=== PATIENT | female | born 1990 | race Caucasian/White ===

== ENCOUNTER 2018-10-13 16:43 | Observation (INO) | payer MEDICAID ==
[~2018-10-13] VITALS: Ht 167.6 cm; Wt 123.8 kg
[2018-10-13] MEDS ORDERED: PNV1TABL50 MT (17:33)
== END 2018-10-13 18:30 | disposition home or self-care (01) ==
LOC: 8 EST LDRP 16:43
PROVIDERS: ADMIT Specialist; ATTEND Specialist
DX: O26.893 Other specified pregnancy related conditions, third trimester (principal); R10.30 Lower abdominal pain, unspecified; Z3A.39 39 weeks gestation of pregnancy
CPT/HCPCS: G0378 ×2

== ENCOUNTER 2018-10-14 02:53 | Inpatient (IN) | payer MEDICAID ==
[~2018-10-14] VITALS: Ht 167.6 cm; Wt 123.8 kg
[~2018-10-14 02:53] MED LIST: PNV1TABL50 MT
[2018-10-14] MEDS ORDERED: LIDOCAINE HCL 1% 20ML VIAL (Pyxis) INJ INFIL SCH (03:30)
[2018-10-14] MEDS ORDERED: CARBOPROST TROMETHAMINE 250 MCG/ML AMPUL IM PRN (03:30)
[2018-10-14] MEDS ORDERED: METHYLERGONOVINE MALEATE 0.2 MG/ML IM PRN (03:30)
[2018-10-14] MEDS ORDERED: NALOXONE HCL 0.4 MG/ML 1ML VIAL IM PRN (03:30)
[2018-10-14] MEDS ORDERED: MISOPROSTOL 100MCG TABLET VG ONE (03:30)
[2018-10-14] MEDS ORDERED: BUTORPHANOL TARTRATE 2 MG/ML VIAL IV PRN (03:30)
[2018-10-14 04:09] LABS: BASOPHILS % 0.7 % (0.0-2.0); EOSINOPHILS % 0.1 % (0.0-5.0); HEMATOCRIT. 38.1 % (36.0-48.0); HEMOGLOBIN. 12.6 g/dL (12.0-16.0); LYMPHOCYTES % 17.4 % (20.0-50.0); MEAN CORPUSCULAR HEMOGLOBIN 27.7 pg (28.0-32.0); MEAN CORPUSCULAR VOLUME 83.6 fL (81.0-99.0); MEAN PLATELET VOLUME 11.3 fl (7.4-10.4); MONOCYTES % 4.1 % (2.0-8.0); NEUTROPHILS % 77.7 % (40.0-76.0); PLATELET 130 x1000/uL (130-400); RED BLOOD CELL COUNT 4.56 mill/uL (4.2-5.4); RED CELL DISTRIBUTION WIDTH 14.7 % (11.6-14.6)
[2018-10-14 04:10] LABS: CLARITY URINE CLEAR (CLEAR); COLOR URINE YELLOW (YELLOW); KETONES URINE 4+ (NEGATIVE); LEUKOCYTE ESTERASE URINE NEGATIVE (NEGATIVE); NITRITE URINE NEGATIVE (NEGATIVE); OCCULT BLOOD URINE NEGATIVE (NEGATIVE); PH URINE 5.5 (4.5-8.0); PROTEIN URINE TRACE (NEGATIVE); SPECIFIC GRAVITY URINE 1.028 (1.005-1.030); UROBILINOGEN URINE 0.2 E.U./dL (0.2-1.0)
[2018-10-14 04:20] LABS: PARTIAL THROMBOPLASTIN TIME 28.6 sec (23.4-31.0); PROTHROMBIN TIME 9.9 sec (9.6-11.0)
[2018-10-14 04:24] LABS: *AMPHETAMINES SCREEN URINE NEGATIVE (NEGATIVE); *BARBITURATES SCREEN URINE NEGATIVE (NEGATIVE)
[2018-10-14 04:25] LABS: *BENZODIAZEPINES SCREEN URINE NEGATIVE (NEGATIVE); *COCAINE SCREEN URINE NEGATIVE (NEGATIVE); METHADONE URINE SCREEN NEGATIVE (NEGATIVE); OPIATES URINE SCREEN NEGATIVE (NEGATIVE); PHENCYCLIDINE URINE SCREEN NEGATIVE (NEGATIVE)
[2018-10-14] MEDS: LACTATED RINGERS 1,000 ML IV SCH ×4 (04:49→12:04)
[2018-10-14 04:59] LABS: CANNABINOID URINE SCREEN PRESUMTIVE POSITIVE (NEGATIVE)
[2018-10-14] MEDS ORDERED: ROPIVACAINE HCL 2MG/ML (0.2%) 200ML BOTTLE IR SCH (05:30)
[2018-10-14] MEDS ORDERED: FENTANYL CITRATE/PF 50MCG/ML 2ML VIAL ONE (05:40)
[2018-10-14] MEDS ORDERED: BUPIVACAINE HCL/PF 0.25% (2.5MG/ML) 10ML ONE (05:40)
[2018-10-14 05:53] LABS: HEPATITIS B SURFACE ANTIGEN NEGATIVE
[2018-10-14 06:27] LABS: CHLORIDE 107 mEq/L (98-107)
[2018-10-14] MEDS ORDERED: MAGNESIUM 20 G PREMIX (L & D) 500 ML IV SCH (06:30)
[2018-10-14 06:42] LABS: D-DIMER 2.45 mg/L FEU (<0.50)
[2018-10-14] MEDS: MAGNESIUM 20 G PREMIX (L & D) 500 ML IV SCH ×2 (07:19→15:32)
[2018-10-14] MEDS: DEXT 5%/LR + PITOCIN 20UNITS/L 1,000 ML IV SCH ×2 (12:03→17:45)
[2018-10-14] MEDS ORDERED: LIDOCAINE HCL 2%/EPINEPHRINE 1:100,000 20 ML VIAL INFIL ONE (13:42)
[2018-10-14] MEDS ORDERED: DEXT 5%/LR + PITOCIN 20UNITS/L 1,000 ML IV SCH (16:55)
[2018-10-14] MEDS ORDERED: IBUPROFEN 400MG TABLET PO PRN (17:00)
[2018-10-14] MEDS ORDERED: LANOLIN OINT 0.25 GM TUBE TOP PRN (17:00)
[2018-10-14] MEDS ORDERED: RHO(D) IMMUNE GLOBULIN 300 MCG/SYR IM PRN (17:00)
[2018-10-14 18:45] VITALS: BP 122/78
[2018-10-14 20:00] VITALS: BP 137/79
[2018-10-14] MEDS: IBUPROFEN 800MG TABLET PO PRN (20:16)
[2018-10-15] VITALS: BP 130/76
[2018-10-15] MEDS: IBUPROFEN 800MG TABLET PO PRN (02:40)
[2018-10-15 04:00] VITALS: BP 110/50
[2018-10-15] MEDS ORDERED: MEASLES,MUMPS&RUBELLA VACCINE 1 VIAL SUBCUT ONE (06:00)
[2018-10-15 07:14] LABS: BASOPHILS % 0.3 % (0.0-2.0); EOSINOPHILS % 0.4 % (0.0-5.0); HEMATOCRIT. 27.6 % (36.0-48.0); HEMOGLOBIN. 9.2 g/dL (12.0-16.0); LYMPHOCYTES % 22.7 % (20.0-50.0); MEAN CORPUSCULAR HEMOGLOBIN 28.2 pg (28.0-32.0); MEAN CORPUSCULAR VOLUME 84.2 fL (81.0-99.0); MEAN PLATELET VOLUME 11.3 fl (7.4-10.4); MONOCYTES % 7.5 % (2.0-8.0); NEUTROPHILS % 69.1 % (40.0-76.0); PLATELET 112 x1000/uL (130-400); RED BLOOD CELL COUNT 3.28 mill/uL (4.2-5.4); RED CELL DISTRIBUTION WIDTH 14.6 % (11.6-14.6)
[2018-10-15 08:10] VITALS: BP 129/81
[2018-10-15] MEDS: PRENATAL VIT/FE FUMARATE/FA TABLET PO SCH (09:57)
[2018-10-15 16:22] VITALS: BP 123/68
[2018-10-15 20:30] VITALS: BP 127/75
[2018-10-16] MEDS: IBUPROFEN 800MG TABLET PO PRN ×2 (02:09→08:30)
[2018-10-16 04:00] VITALS: BP 122/72
[2018-10-16] MEDS ORDERED: MEDROXYPROGESTERONE ACETATE 150MG/ML VIAL IM NR (07:00)
[2018-10-16] MEDS: PRENATAL VIT/FE FUMARATE/FA TABLET PO SCH (08:30)
[2018-10-16 11:30] VITALS: BP 116/74
[2018-10-20 07:14] LABS: CANNABINOID CONFIRMATION URINE Positive (.)
== END 2018-10-16 11:10 | disposition home or self-care (01) | DRG 560 ==
LOC: 8 EST LDRP 02:53 → OBSVTOIN 02:53 → 8EST 18:30
PROVIDERS: ADMIT Obstetrics & Gynecology; ATTEND Obstetrics & Gynecology
PROC: 10E0XZZ Delivery of Products of Conception, External Approach (ICD-10-PCS; principal; 2018-10-14)
PROC: 3E0R3BZ Introduction of Anesthetic Agent into Spinal Canal, Percutaneous Approach (ICD-10-PCS; 2018-10-14)
PROC: 00HU33Z Insertion of Infusion Device into Spinal Canal, Percutaneous Approach (ICD-10-PCS; 2018-10-14)
DX: O13.4 Gestational [pregnancy-induced] hypertension without significant proteinuria, complicating childbirth (principal); O69.81X0 Labor and delivery complicated by cord around neck, without compression, not applicable or unspecified; Z37.0 Single live birth; Z3A.39 39 weeks gestation of pregnancy
CPT/HCPCS: 36415; 80305; 80349; 83735; 84550; 85379; 85384; 86592; 86703; 86762; 86850; 86900; 87340; 90707; 99281; J1050; J2590; J2795; J3010; J3475; J3490; A4315

== ENCOUNTER 2020-01-05 11:54 | Emergency (ER) | payer MEDICAID ==
[~2020-01-05] VITALS: Ht 167.6 cm; Wt 100.0 kg
[2020-01-05 13:56] VITALS: BP 124/68
== END 2020-01-05 14:00 | disposition home or self-care (01) ==
LOC: ER 11:54
DX: B34.9 Viral infection, unspecified (principal); R19.7 Diarrhea, unspecified
CPT/HCPCS: 99282

== ENCOUNTER 2023-09-28 06:37 | Emergency (ER) | payer MEDICAID ==
[~2023-09-28] VITALS: Ht 162.6 cm; Wt 100.0 kg
[2023-09-28 06:44] VITALS: O2SAT 100
[2023-09-28 08:29] LABS: CLARITY URINE CLOUDY (CLEAR); COLOR URINE YELLOW (YELLOW); SPECIFIC GRAVITY URINE 1.013 (1.005-1.030)
[2023-09-28 08:30] LABS: GLUCOSE URINE NEGATIVE (NEGATIVE); KETONES URINE NEGATIVE (NEGATIVE); LEUKOCYTE ESTERASE URINE 1+ (NEGATIVE); NITRITE URINE NEGATIVE (NEGATIVE); OCCULT BLOOD URINE NEGATIVE (NEGATIVE); PH URINE 7.5 (4.5-8.0); PROTEIN URINE NEGATIVE (NEGATIVE); UROBILINOGEN URINE 0.2 E.U./dL (0.2-1.0)
[2023-09-28 08:32] LABS: SQUAMOUS EPITHELIAL CELL URINE 2+ /lpf (RARE/1+)
[2023-09-28 08:33] LABS: BACTERIA URINE 3+; RBC URINE 0-2 /hpf (0-2)
[2023-09-28] MEDS ORDERED: NITR-87 MT (08:44)
[2023-09-28 09:25] VITALS: BP 124/74; PULSE 78; RESP 18; TEMP 98.4
== END 2023-09-28 09:27 | disposition home or self-care (01) ==
LOC: ER 06:52
DX: N30.00 Acute cystitis without hematuria (principal); R32 Unspecified urinary incontinence
CPT/HCPCS: 81003; 99283

== ENCOUNTER 2024-02-22 20:43 | Emergency (ER) | payer MEDICAID ==
[~2024-02-22] VITALS: Ht 170.2 cm; Wt 85.0 kg
[~2024-02-22 20:43] MED LIST changes: +NITR-87 MT
[2024-02-22 20:47] VITALS: O2SAT 98
[2024-02-22] MEDS: ACETAMINOPHEN 325MG TABLET PO ONE (23:30)
[2024-02-22] MEDS: TETANUS, DIPHTHERIA, PERTUSSIS VAC/PF 0.5ML (>10YR OLD) IM ONE (23:30)
[2024-02-23] MEDS: LIDOCAINE HCL/PF 1% 10 MG/ML 5ML VIAL INFIL ONE (00:19)
[2024-02-23] MEDS: BACITRACIN ZINC OINT UDPKT TOP ONE (00:20)
[2024-02-23] MEDS ORDERED: AMOX1TAB16 MT (00:45)
[2024-02-23 01:04] VITALS: BP 136/79; PULSE 89; RESP 20; TEMP 36.55848; O2SAT 100
== END 2024-02-23 01:07 | disposition home or self-care (01) ==
LOC: ER 20:43
DX: S51.011A Laceration without foreign body of right elbow, initial encounter (principal); I10 Essential (primary) hypertension; Z98.51 Tubal ligation status; Z79.899 Other long term (current) drug therapy; W54.0XXA Bitten by dog, initial encounter; Y93.89 Activity, other specified; Y92.89 Other specified places as the place of occurrence of the external cause; Y99.8 Other external cause status
CPT/HCPCS: 99283; 73080; 12002; J3490